=== PATIENT | female | born 2000 | race African-American/Black ===

== ENCOUNTER 2020-10-27 02:01 | Emergency (ER) | payer MEDICAID ==
[~2020-10-27] VITALS: Ht 170.2 cm; Wt 105.0 kg
[2020-10-27] MEDS ORDERED: HYDROCODONE/ACETAMINOPHEN 5/325MG TABLET PO ONE (03:00)
[2020-10-27 03:18] VITALS: BP 120/59
[2020-10-27] MEDS ORDERED: IBUP-2029 MT (04:09)
[2020-10-27] MEDS ORDERED: ACET-2708 MT (04:09)
== END 2020-10-27 05:00 | disposition home or self-care (01) ==
LOC: ER 02:01
DX: S90.31XA Contusion of right foot, initial encounter (principal); S93.491A Sprain of other ligament of right ankle, initial encounter; W01.0XXA Fall on same level from slipping, tripping and stumbling without subsequent striking against object, initial encounter; Y93.89 Activity, other specified; Y92.89 Other specified places as the place of occurrence of the external cause; Y99.8 Other external cause status; Z98.890 Other specified postprocedural states
CPT/HCPCS: 73610; 73630; 99284

== ENCOUNTER 2020-10-29 06:59 | Emergency (ER) | payer MEDICAID ==
[~2020-10-29] VITALS: Ht 172.7 cm; Wt 94.0 kg
[~2020-10-29 06:59] MED LIST: ACET-2708 MT; IBUP-2029 MT
[2020-10-29 07:08] VITALS: BP 157/77
== END 2020-10-29 08:49 | disposition left against medical advice (07) ==
LOC: ER 08:19
DX: R68.89 Other general symptoms and signs (principal); Z53.21 Procedure and treatment not carried out due to patient leaving prior to being seen by health care provider